=== PATIENT | male | born 1970 | race Asian ===

== ENCOUNTER 2019-09-27 13:27 | Inpatient (IN) | payer SELFPAY ==
[~2019-09-27] VITALS: Ht 170.2 cm; Wt 75.7 kg
[2019-09-27 14:00] VITALS: BP 160/101
--- NOTE | 2019-09-27 14:03 | Emergency Room Report ---
History of Present Illness General Chief Complaint: Stroke Symptoms Source: Patient Present Illness [facility] Disclaimer: Please note that this report is being documented using [employer] technology. This can lead to erroneous entry secondary to incorrect interpretation by the dictating instrument. HPI: 49-year-old male with no reported medical history presents for evaluation of headache, blurred vision, weakness and slurred speech. Symptoms began approximately 2 nights ago. The patient awoke while taking care of his mother and found that his speech was slurred and that he was not enunciating as he usually does. Notes some numbness and tingling on the left side of his face and possible facial droop but he cannot be sure of this. The following day he went to work and noticed that his right hand felt weak and discoordinated. Said he could not write using a pen as he usually would. Symptoms have persisted in this however his speech, facial numbness and possible facial droop had resolved. Also noticing problems with his gait stating that he is not as steady as he usually is. He has not fallen and denies any vertiginous symptoms. There is been no recent injury. Once the symptoms started he started taking 2 tablets of 81 mg aspirin. No history of stroke, head bleed, seizure. He had a febrile URI illness approximately 10 days ago which resolved. No current symptoms from that remain. PMH: Denies PSH: Denies Allergies: Denies Social Hx: Social alcohol use. Denies tobacco or drug use Allergies: Coded Allergies: No Known Allergies (Unverified , 09/27/19) Nursing Documentation-PMH Past Medical History: No Stated History Review of Systems All Other Systems: negative except mentioned in HPI Physical Exam Vital Signs Date Time Temp Pulse Resp B/P (MAP) Pulse Ox O2 Delivery O2 Flow Rate FiO2 09/27/19 13:33 97.7 92 18 155/113 (127) 97 Room Air General: Awake and alert, no acute distress HEENT: NC/AT. EOMI. PERRLA. Visual law are full. No nystagmus. Facial expressions are symmetrical. No facial droop. Cardiovascular: RRR. S1 and S2 normal. No murmur appreciated Resp: Normal work of breathing. No cough, wheezing or crackles appreciated Abdomen: Abdomen is soft, nondistended. Nontender Skin: Intact. No abrasions, laceration or rash over the exposed skin MSK: Normal tone and bulk. Moving all extremities. No obvious deformity. There is no drift in the upper or lower extremities bilaterally. Neuro: Awake and alert. Mentating appropriately. Facial expression symmetrical. No dysarthria, no ataxia on cwyzko-zywm-lydetw or obyg-sq-rkds testing. Sensation to light touch is intact over the upper and lower extremities. The patient has intact speech with good repetition, comprehension. Fund of knowledge is full. No aphasia, no neglect. NIH: 0 Procedures Critical Care Time Critical Care Time Total critical care time: Approximately 45 minutes Due to a high probability of clinically significant, life threatening deterioration, the patient required the highest level of preparedness to intervene emergently and I personally spent this critical care time directly and personally managing the patient. This critical care time included obtaining a history, examining the patient, pulse oximetry, ordering and reviewing studies , ordering treatments, evaluating response to treatment and updating management plan as needed, frequent reassessment and discussion with other providers as well as arranging for ultimate disposition. This critical to care time was performed to assess and manage the high probability of life-threatening deterioration that could result in multiorgan failure. This critical care time is separate from the separately billable procedures and treating other patients. Medical Decision Making Diagnostic Impression: Primary Impression: CVA (cerebral vascular accident) ER Course This a 49-year-old male presenting for evaluation of intermittent headaches, facial numbness, subjective facial droop, changes in strength, coordination and balance over the past 2 to 3 days. Patient is outside acute intervention window for possible stroke though this is top of the differential. Patient is out of the treatment window for thrombolytics or vascular intervention at this time. NIH is 0. Differential also includes but is not limited to metabolic or electrolyte abnormality, vitamin deficiency, intoxication, GBS, TIA, Gambino's palsy, intracranial mass to name a few. He was sent for stat CT of the head per stroke protocol. Labs sent and are pending. Patient also be sent for an MRI. Laboratory Tests Test 09/27/19 14:50 White Blood Count 4.9 K/UL (4.8-10.8) Red Blood Count 5.51 M/UL (4.70-6.10) Hemoglobin 16.8 G/DL (14.2-18.0) Hematocrit 48.4 % (42.0-52.0) Mean Corpuscular Volume 88 FL (80-99) Mean Corpuscular Hemoglobin 30.5 PG (27.0-31.0) Mean Corpuscular Hemoglobin Concent 34.7 G/DL (32.0-36.0) Red Cell Distribution Width 10.2 % (11.6-14.8) L Platelet Count 173 K/UL (150-450) Mean Platelet Volume 7.1 FL (6.5-10.1) Neutrophils (%) (Auto) 57.0 % (45.0-75.0) Lymphocytes (%) (Auto) 33.1 % (20.0-45.0) Monocytes (%) (Auto) 6.5 % (1.0-10.0) Eosinophils (%) (Auto) 2.5 % (0.0-3.0) Basophils (%) (Auto) 1.0 % (0.0-2.0) Prothrombin Time 9.9 SEC (9.30-11.50) Prothrombin Time INR 0.9 (0.9-1.1) PTT 25 SEC (23-33) Sodium Level 137 MMOL/L (136-145) Potassium Level 4.4 MMOL/L (3.5-5.1) Chloride Level 102 MMOL/L (98-107) Carbon Dioxide Level 24 MMOL/L (21-32) Anion Gap 11 mmol/L (5-15) Blood Urea Nitrogen 17 mg/dL (7-18) Creatinine 1.1 MG/DL (0.55-1.30) Estimate Glomerular Filtration Rate > 60 mL/min (>60) Glucose Level 338 MG/DL (74-106) H Calcium Level 8.6 MG/DL (8.5-10.1) Total Bilirubin 0.6 MG/DL (0.2-1.0) Aspartate Amino Transferase (AST) 22 U/L (15-37) Alanine Aminotransferase (ALT) 51 U/L (12-78) Alkaline Phosphatase 77 U/L (46-116) Total Protein 7.3 G/DL (6.4-8.2) Albumin 3.8 G/DL (3.4-5.0) Globulin 3.5 g/dL Albumin/Globulin Ratio 1.1 (1.0-2.7) Triglycerides Level 351 MG/DL (30-150) H Cholesterol Level 233 MG/DL (< 200) H LDL Cholesterol 167 mg/dL (<100) H HDL Cholesterol 43 MG/DL (40-60) Cholesterol/HDL Ratio 5.4 (3.3-4.4) H EKG Diagnostic Results EKG Time: 14:05 Rate: normal Rhythm: NSR ST Segments: no acute changes Other Impression Sinus rhythm, slight right axis deviation, normal intervals, no ST segment changes. Q waves in the precordial leads Rhythm Strip Diag. Results Rhythm Strip Time: 14:05 EP Interpretation: yes Rate: 80s Rhythm: NSR, no PVC's, no ectopy CT/MRI/US Diagnostic Results CT/MRI/US Diagnostic Results : Impression Preliminary Findings Only See Final Report For Complete Findings CT HEAD Without Contrast: 9 mm hypodensity in the right basal ganglia, likely a remote lacunar infarct. No evidence of acute intracranial hemorrhage, mass effect, or midline shift. Mild mucosal thickening in the ethmoid air cells and maxillary sinuses. Radiologist: Olegario Kamara MD Study ready at 14:08 and initial results transmitted at 14:11 Preliminary Findings Only See Final Report For Complete Findings MRI HEAD Without Contrast: 1 x 0.7 cm acute infarct at the ventral left braden image 8 Ventricles are within limits and midline Dilated perivascular space inferior right basal ganglia, incidental Major intracranial flow voids appear within limits Radiologist: Marcell Cruz M.D. Study ready at 17:23 and initial results transmitted at 17:43 Reevaluation Time: 14:29 Last Vital Signs Date Time Temp Pulse Resp B/P (MAP) Pulse Ox O2 Delivery O2 Flow Rate FiO2 09/27/19 13:33 97.7 92 18 155/113 (127) 97 Room Air Status: unchanged Reevaluation Impression CT scan is concerning for a 9 mm hypodensity in the right basal ganglia which radiology interpreting as a possible remote lacunar infarct. Will obtain MRI of the head to further differentiate. Dr. Fernandez of neurology has been made aware the patient is coming to evaluate them. The patient will require admission. 1757: MRI confirms infarct. 1 x 0.7 cm acute infarct in the vertebral left braden. Patient is received aspirin. He has been evaluated neurology and the admitting service. Will be admitted to telemetry for further work-up and treatment. Disposition: ADMITTED INPATIENT Condition: Serious Fan,Bernard MD Sep 27, 2019 14:02
--- NOTE | 2019-09-27 14:05 | NUR ---
ED Nurse Note: Pt brought into ambulance w c/o slurred speech and feeling that R side is weaker than L side since 3 days ago 0430. Pt states he woke up and felt numbness L face and weakness R side. Pt states he couldn't write the same as well. Pt bilat arm strength and leg 5/5. Pt does not have facial droopiness. Pt set up on monitor. Pt has returned from CT. at bedside.
--- NOTE | 2019-09-27 14:12 | Diagnostic Imaging Report ---
Indications: Altered mental status Technique: Spiral acquisitions obtained through the brain. Angled axial and coronal 5 x 5 mm slices were reconstructed. Total dose length product 1457 mGycm. CTDI vol(s) 62 mGy. Dose reduction achieved using automated exposure control Comparison: None. Findings: No acute intracranial hemorrhage or edema. No mass effect or midline shift. Normal rahman-white differentiation. Old lacunar infarct versus prominent perivascular space is seen in the right basal ganglia Visualized orbits are unremarkable. There is bilateral maxillary sinus disease. Mastoids are clear. The calvarium is intact. Impression: Negative for acute intracranial bleed or mass effect Right basal ganglia lacunar infarcts versus prominent perivascular space Sinus disease This agrees with the preliminary interpretation provided overnight by [facility]. The CT scanner at [facility] is accredited by the [employer] and the scans are performed using protocols designed to limit radiation exposure to as low as reasonably achievable to attain images of sufficient resolution adequate for diagnostic evaluation.
[2019-09-27 15:06] LABS: EOSINOPHILS % (AUTO) 2.5 % (0.0-3.0); HEMATOCRIT 48.4 % (42.0-52.0); HEMOGLOBIN 16.8 G/DL (14.2-18.0); LYMPHOCYTES % (AUTO) 33.1 % (20.0-45.0); MEAN CORPUSCULAR VOLUME 88 FL (80-99); MONOCYTES % (AUTO) 6.5 % (1.0-10.0); PLATELET COUNT 173 K/UL (150-450); RED BLOOD COUNT 5.51 M/UL (4.70-6.10); RED CELL DISTRIBUTION WIDTH 10.2 % (11.6-14.8); WHITE BLOOD COUNT 4.9 K/UL (4.8-10.8)
[2019-09-27 15:20] LABS: ANION GAP 11 mmol/L (5-15); BLOOD UREA NITROGEN 17 mg/dL (7-18); CALCIUM 8.6 MG/DL (8.5-10.1); CARBON DIOXIDE 24 MMOL/L (21-32); CHLORIDE 102 MMOL/L (98-107); CREATININE 1.1 MG/DL (0.55-1.30); POTASSIUM 4.4 MMOL/L (3.5-5.1); SODIUM 137 MMOL/L (136-145)
[2019-09-27 15:23] LABS: ALANINE AMINOTRANSFERASE 51 U/L (12-78); ALBUMIN 3.8 G/DL (3.4-5.0); ALBUMIN/GLOBULIN RATIO 1.1 (1.0-2.7); ALKALINE PHOSPHATASE 77 U/L (46-116); ASPARTATE AMINO TRANSFERASE 22 U/L (15-37); BILIRUBIN,TOTAL 0.6 MG/DL (0.2-1.0); CHOLESTEROL 233 MG/DL (< 200); HDL CHOLESTEROL 43 MG/DL (40-60); INR 0.9 (0.9-1.1); TRIGLYCERIDES 351 MG/DL (30-150)
--- NOTE | 2019-09-27 15:40 | NUR ---
ED Nurse Note: Pt taken to CT.
[2019-09-27] MEDS ORDERED: Aspirin Baby 81mg ORAL ONE (15:45)
[2019-09-27] MEDS ORDERED: Gadavist 7.5mMol/7.5ml vial IV PRN (16:30)
[2019-09-27 16:41] VITALS: BP 156/100
--- NOTE | 2019-09-27 17:44 | Diagnostic Imaging Report ---
Indication: Headache, blurred vision, weakness, slurred speech Technique: sagittal T1 fast spin echo, axial T1 FLAIR, axial T2 FLAIR, axial T2 FS PROPELLER, axial T2* GRE, axial diffusion weighted images. ADC and exponential ADC maps generated Comparison: Reference made to CT scan performed earlier the same day Findings: There is a small focus of restricted diffusion in the braden just to the left of midline. This demonstrates high T2 signal, is visible retrospectively as a focus of slightly decreased attenuation on recent CT scan. There is no associated hemorrhage. No acute hemorrhage or edema. No mass effect nor midline shift. Normal size ventricles and extra axial CSF spaces old lacunar infarcts versus prominent perivascular space seen in the right posterior inferior basal ganglia region.. Visualized orbits and sinuses are unremarkable. The vascular flow voids are preserved. There is bilateral maxillary sinus disease Impression: Positive for acute left pontine lacunar infarct Old right basal ganglia lacunar infarct versus prominent perivascular space, favor the latter Sinus disease Negative for acute intracranial bleed or mass effect This agrees with the preliminary interpretation provided overnight by [facility].
--- NOTE | 2019-09-27 18:25 | Diagnostic Imaging Report ---
Indications: Headache, blurred vision, weakness, and slurred speech Technique: 3D [id number]-[id number] images obtained through the [place] [facility] [place]. MIP reconstructions were generated in multiple rotational projections Comparison: None. Reference made to brain CT and MRI of the same day Findings: Codominant nonstenotic bilateral distal vertebral arteries. Patent and nonstenotic basilar artery. Both superior cerebellar arteries are patent and visualized. Patent nonstenotic bilateral P1 segments and proximal posterior cerebral arteries. Neither posterior communicating artery is visualized. Patent nonstenotic distal internal carotid arteries bilaterally. Patent nonstenotic bilateral M1 segments and proximal branches. Patent nonstenotic bilateral A1 segments. There is a patent anterior communicating artery demonstrated. The A2 segments and proximal anterior screw artery branches are patent without evidence of significant stenosis. There is no evidence of aneurysm or vascular malformation demonstrated. Impression: Negative for evidence of significant proximal intracranial cerebrovascular insufficiency
--- NOTE | 2019-09-27 18:31 | Diagnostic Imaging Report ---
Indication: Headache, blurred vision, weakness, and slurred speech, acute infarct on recent MRI Technique: 2-D [id number] images obtained through the extracranial through circulation. Subsequent, IV administration of gadolinium contrast. Coronal sequential TRICKS sequences then obtained of the intracranial vessels. MIP reconstructions were generated. Comparison: none Findings: Unremarkable aortic arch anatomy. Patent nonstenotic right brachiocephalic, common, and internal carotid arteries. Patent nonstenotic right proximal subclavian and vertebral artery. Vertebral arteries are codominant. Patent nonstenotic left proximal subclavian. There is suggestion of a focal stenosis of the proximal left vertebral artery on the postcontrast images. This is not corroborated on the fxsp-nh-tbhxhq images, could be artifactual. Patent nonstenotic left common carotid and internal carotid artery. Impression: Possible focal significant stenosis of the left proximal vertebral artery, versus artifact No other evidence of significant extracranial cerebrovascular insufficiency This agrees with the preliminary interpretation provided overnight by [facility].
[2019-09-27 19:05] VITALS: BP 145/89
--- NOTE | 2019-09-27 19:05 | NUR ---
ED Nurse Note: Recieved report from Eda CASTREJON. Pt alert and oriented, verbally repsonsive. No SOB.
[2019-09-27] MEDS ORDERED: NKM (19:31)
--- NOTE | 2019-09-27 20:36 | History and Physical ---
History of Present Illness General Date patient seen: Sep 27, 2019 Reason for Hospitalization: Stroke Symptoms Present Illness HPI Patient is a 49-year-old right-handed male with no known medical problems presents with 2 days of headache, blurred vision, slurred speech, difficulty writing, weakness and left-sided facial numbness. Patient woke up feeling all of this and did not think anything much of it. The next day he went to work and noticed that his right hand felt discoordinated. Later on his facial numbness resolved however he still feels that his speech is not at its baseline and his writing is still weak. He also noticed his gait was not daily. Patient has never felt like this before. No recent trauma. He took aspirin at home. He denies any fevers, chills, shortness of breath, chest pain, palpitations, dizziness, lower extremity edema. Patient has never seen a doctor in the past. Past medical history: None Past surgical history: None Social history: Occasional alcohol use, denies tobacco or illicit drug use Family history: Grandfather at an early age from a stroke Allergies: Coded Allergies: No Known Allergies (Unverified , 09/27/19) Medication History Scheduled Aspirin* (Aspirin*), 81 MG ORAL DAILY Atorvastatin (Lipitor), 80 MG ORAL BEDTIME Clopidogrel Bisulfate* (Plavix*), 75 MG ORAL DAILY Lisinopril* (Lisinopril*), 10 MG ORAL DAILY Metformin Hcl* (Glucophage*), 850 MG ORAL TIAC No Known Medications* (NKM - No Known Medications*), 0 ., (Reported) Patient History Healthcare decision maker N Resuscitation status Advanced Directive on File Review of Systems Constitutional: Reports: weakness Eye: Reports: blurred vision ENT: Denies: no symptoms, see HPI, ear pain, ear discharge, nose pain, nose congestion, throat pain, throat swelling, mouth pain, hearing loss, nasal discharge, other Respiratory: Denies: no symptoms, see HPI, cough, orthopnea, shortness of breath, stridor, wheezing, CRAVEN, sputum, other Cardiovascular: Denies: no symptoms, see HPI, chest pain, edema, palpitations, syncope, PND, other Gastrointestinal: Denies: no symptoms, see HPI, abdominal pain, constipation, diarrhea, nausea, vomiting, melena, hematemesis, other Genitourinary: Denies: no symptoms, see HPI, discharge, dysuria, frequency, hematuria, pain, retention, incontinence, urgency, vag bleed/dc, other Musculoskeletal: Denies: no symptoms, see HPI, back pain, gout, joint pain, joint swelling, muscle pain, muscle stiffness, other Skin: Denies: no symptoms, see HPI, rash, change in color, change in hair/nails , dryness, lesions, other Psychiatric: Denies: no symptoms, see HPI, prior hx, anxiety, depressed feelings, emotional problems, SI, HI, hallucinations, other Neurological: Reports: see HPI, headache, numbness, tingling, focal weakness Endocrine: Denies: no symptoms, see HPI, excessive sweating, flushing, intolerance to temperature, increased thirst, increased urine, unexplained weight loss, other Hematologic/Lymphatic: Denies: no symptoms, see HPI, anemia, blood clots, easy bleeding, easy bruising, swollen glands, diathesis, other Physical Exam Physical Exam Narrative General: Awake and alert, no acute distress HEENT: NC/AT. EOMI. PERRLA. Visual law are full. No nystagmus. No facial droop. Cardiovascular: RRR. S1 S2. No murmur appreciated Resp: CTA bl. No wheezing or crackles Abdomen: Abdomen is soft, nt, nd MSK: Normal tone and bulk. Moving all extremities. Neuro: Awake and alert. Mentating appropriately. Facial expression symmetrical. No dysarthria, no ataxia on afbpjo-vkxj-qleolt or akky-jd-xuko testing. Sensation to light touch is intact over the upper and lower extremities. intact speech with good repetition, comprehension. Fund of knowledge is full. No aphasia, no neglect. no drift skin: no ulcer, or rashes Last 24 Hour Vital Signs Date Time Temp Pulse Resp B/P (MAP) Pulse Ox O2 Delivery O2 Flow Rate FiO2 09/27/19 16:41 98.7 78 19 156/100 99 Room Air 09/27/19 14:00 98.7 65 18 160/101 98 Room Air 09/27/19 13:33 97.7 92 18 155/113 (127) 97 Room Air Laboratory Tests Test 09/27/19 14:50 White Blood Count 4.9 K/UL (4.8-10.8) Red Blood Count 5.51 M/UL (4.70-6.10) Hemoglobin 16.8 G/DL (14.2-18.0) Hematocrit 48.4 % (42.0-52.0) Mean Corpuscular Volume 88 FL (80-99) Mean Corpuscular Hemoglobin 30.5 PG (27.0-31.0) Mean Corpuscular Hemoglobin Concent 34.7 G/DL (32.0-36.0) Red Cell Distribution Width 10.2 % (11.6-14.8) L Platelet Count 173 K/UL (150-450) Mean Platelet Volume 7.1 FL (6.5-10.1) Neutrophils (%) (Auto) 57.0 % (45.0-75.0) Lymphocytes (%) (Auto) 33.1 % (20.0-45.0) Monocytes (%) (Auto) 6.5 % (1.0-10.0) Eosinophils (%) (Auto) 2.5 % (0.0-3.0) Basophils (%) (Auto) 1.0 % (0.0-2.0) Prothrombin Time 9.9 SEC (9.30-11.50) Prothromb Time International Ratio 0.9 (0.9-1.1) Activated Partial Thromboplast Time 25 SEC (23-33) Sodium Level 137 MMOL/L (136-145) Potassium Level 4.4 MMOL/L (3.5-5.1) Chloride Level 102 MMOL/L (98-107) Carbon Dioxide Level 24 MMOL/L (21-32) Anion Gap 11 mmol/L (5-15) Blood Urea Nitrogen 17 mg/dL (7-18) Creatinine 1.1 MG/DL (0.55-1.30) Estimat Glomerular Filtration Rate > 60 mL/min (>60) Glucose Level 338 MG/DL (74-106) H Calcium Level 8.6 MG/DL (8.5-10.1) Total Bilirubin 0.6 MG/DL (0.2-1.0) Aspartate Amino Transf (AST/SGOT) 22 U/L (15-37) Alanine Aminotransferase (ALT/SGPT) 51 U/L (12-78) Alkaline Phosphatase 77 U/L (46-116) Total Protein 7.3 G/DL (6.4-8.2) Albumin 3.8 G/DL (3.4-5.0) Globulin 3.5 g/dL Albumin/Globulin Ratio 1.1 (1.0-2.7) Triglycerides Level 351 MG/DL (30-150) H Cholesterol Level 233 MG/DL (< 200) H LDL Cholesterol 167 mg/dL (<100) H HDL Cholesterol 43 MG/DL (40-60) Cholesterol/HDL Ratio 5.4 (3.3-4.4) H Height (Feet): 5 Height (Inches): 7.00 Weight (Pounds): 170 Medications Current Medications Medications (Trade) Dose Ordered Sig/Marcial Route PRN Reason Start Time Stop Time Status Last Admin Dose Admin Gadobutrol (Gadavist) 7.5 mmol NOW PRN IV Radiology Procedure 09/27/19 16:30 09/30/19 16:26 Objective Narrative MRI brain: Impression: Positive for acute left pontine lacunar infarct Old right basal ganglia lacunar infarct versus prominent perivascular space, favor the latter Sinus disease Negative for acute intracranial bleed or mass effect MRA head and neck: Impression: Possible focal significant stenosis of the left proximal vertebral artery, versus artifact No other evidence of significant extracranial cerebrovascular insufficiency EKG personally interpreted by me: Normal sinus rhythm at 82 bpm, right axis deviation, old septal infarct Assessment/Plan Problem List: (1) Acute CVA (cerebrovascular accident) ICD Codes: I63.9 - Cerebral infarction, unspecified SNOMED: 732303847, [id number] (2) Newly diagnosed diabetes ICD Codes: E11.9 - Type 2 diabetes mellitus without complications SNOMED: 03059009, 970870936 (3) Hypertension ICD Codes: I10 - Essential (primary) hypertension SNOMED: 98029711 (4) Hyperlipidemia ICD Codes: E78.5 - Hyperlipidemia, unspecified SNOMED: 37421739 Status: stable Assessment/Plan: 49-year-old male with acute left pontine infarct, hyperlipidemia, hypertension, diabetes. All newly diagnosed. 1. Acute left pontine CVA, left vertebral artery stenosis 2. Uncontrolled hypertension 3. Uncontrolled diabetes 4. Uncontrolled hyperlipidemia Plan: Admit to boring machine operator for any arrhythmias, 2D echocardiogram MRI brain, MRA head and neck reviewed Neurology consult Dr. Fernandez Aspirin, Plavix, atorvastatin 80 mg Permissive hypertension Check hemoglobin A1c Frequent neurochecks I spent 70 minutes on this encounter. Greater than 50% spent in counseling and care coordination. Plan of care discussed with patient, RN, ED physician. Time of note may not reflect time of encounter. Lawson Chung M.D. Sep 27, 2019 20:36
[2019-09-27] MEDS ORDERED: Albuterol/Ipratropium 3ml neb HHN PRN (20:45)
[2019-09-27] MEDS ORDERED: Miralax 17gm pkt ORAL PRN (20:45)
--- NOTE | 2019-09-27 20:50 | NUR ---
ED Nurse Note: Report given to Kathy CASTREJON.
[2019-09-27 21:00] VITALS: BP 154/90
[2019-09-27] MEDS ORDERED: Labetalol 5mg/ml 20ml vial IV PRN (21:00)
[2019-09-27] MEDS ORDERED: Atorvastatin 80mg tab ORAL SCH (21:00)
--- NOTE | 2019-09-27 21:00 | NUR ---
TRANSFER TO FLOOR: Patient transferred to Telemetry [facility]. Report given to Kathy. Pt alert and oriented, verbally responsive. No SOB. Afebrile. IV line on left AC 20g patent and intact. Med recon done. All belongings given to the patient.
--- NOTE | 2019-09-27 21:15 | NUR ---
NURSE NOTES: RECEIVED PATIENT FROM ER. PATIENT ALERT AND ORIENTED X4, DENIES PAIN OR DIZZINESS AT THIS TIME. BELONGINGS CHECKED WITH ER NURSE. PATIENT DECLINED TO SEND VALUABLES TO HOSPITAL'S SAF[facility]. PLACED PATIENT ON TELE, SR ON A MONITOR. FALL PRECAUTIONS IN PLACE: CALL LIGHT, BEDSIDE TABLE AND URINAL WITHIN REACH, BED IN LOW POSITION. PLAN OF CARE REVIEWED.
[2019-09-27 21:30] VITALS: BP 162/110
[2019-09-27] MEDS: NovoLOG Insulin Flexpen SUBQ SCH (22:19)
--- NOTE | 2019-09-27 23:02 | NUR ---
NURSE NOTES: PATIENT REQUESTING TO SEE MD TO DISCUSS MRI AND CT RESULTS. LEFT MESSAGE FOR DR. JARVIS. CALLED BACK AND SAID SHE TALKED TO PATIENT IN ER AND WILL SEE HIM IN AM
[2019-09-28] VITALS: BP 156/101
[2019-09-28 04:00] VITALS: BP 127/74
[2019-09-28] MEDS: NovoLOG Insulin Flexpen SUBQ SCH ×2 (06:06→12:05)
--- NOTE | 2019-09-28 07:23 | NUR ---
HAND-OFF: Report given to Miguel CHAMORRO RN. PATIENT RESTING IN BED, NO CHANGE IN MENTAL STATUS NOTED.
--- NOTE | 2019-09-28 07:30 | NUR ---
NURSE NOTES: Received pt from SHANICE CASTREJON. Pt is awake and alert. pt is in RA, no SOB or acute respiratory distress noted. pt has intact iv access LAC 20G SL. Pt is eating breakfast independently. no complain of pain at this moment. all needs attended, bed is locked and is in the lowest position. call light within easy reach. will continue to monitor.
--- NOTE | 2019-09-28 07:49 | NUR ---
HAND-OFF: Report given to CASH Suggs. Addendum: 09/28/19 at 0750 by Es Bell RN incorrect login/user
[2019-09-28 08:00] VITALS: BP 149/100
[2019-09-28 08:04] LABS: ALANINE AMINOTRANSFERASE 44 U/L (12-78); ALBUMIN 3.8 G/DL (3.4-5.0); ALBUMIN/GLOBULIN RATIO 1.1 (1.0-2.7); ALKALINE PHOSPHATASE 70 U/L (46-116); ANION GAP 7 mmol/L (5-15); ASPARTATE AMINO TRANSFERASE 25 U/L (15-37); BILIRUBIN,TOTAL 0.8 MG/DL (0.2-1.0); BLOOD UREA NITROGEN 11 mg/dL (7-18); CALCIUM 8.6 MG/DL (8.5-10.1); CARBON DIOXIDE 27 MMOL/L (21-32); CHLORIDE 103 MMOL/L (98-107); POTASSIUM 3.6 MMOL/L (3.5-5.1); SODIUM 137 MMOL/L (136-145)
--- NOTE | 2019-09-28 08:47 | NUR ---
NURSE NOTES: pt is complaining to see Dr BILL ADKINS notified, waiting to see pt. will continue to monitor.
[2019-09-28] MEDS ORDERED: Aspirin Baby 81mg ORAL SCH (09:00)
[2019-09-28 12:00] VITALS: BP 145/91
[2019-09-28] MEDS ORDERED: PLAVIX75 MG ORAL (14:42)
[2019-09-28] MEDS ORDERED: LIPITOR80 MG ORAL (14:42)
[2019-09-28] MEDS ORDERED: ASPIRIN81 MG ORAL (14:42)
[2019-09-28] MEDS ORDERED: GLUCOPHAGE850 MG ORAL (14:42)
[2019-09-28] MEDS ORDERED: LISINOPRIL10 MG ORAL (14:42)
--- NOTE | 2019-09-28 14:42 | Discharge Summary ---
Discharge Summary Hospital Course Date of Admission Sep 27, 2019 at 15:15 Date of Discharge September 28, 2019 Admitting Diagnosis Acute left pontine infarct NORM Hunt is a 49 year old male who was admitted on Sep 27, 2019 at 15:15 for Stroke Consultations Neurology: Procedures MRI brain, MRA head and neck, CT head, 2D echocardiogram Hospital Course 49-year-old male with acute left pontine infarct, hyperlipidemia, hypertension, diabetes. All newly diagnosed. 1. Acute left pontine CVA, left vertebral artery stenosis 2. Uncontrolled hypertension 3. Uncontrolled diabetes 4. Uncontrolled hyperlipidemia Plan: bone glue maker for any arrhythmias, 2D echocardiogram MRI brain, MRA head and neck reviewed Neurology consult Dr. Fernandez Aspirin, Plavix, atorvastatin 80 mg Permissive hypertension, started on lisinopril 10 mg daily Check hemoglobin A1c--> 9.6, started on metformin 850 mg twice a day Frequent neurochecks I spent 40 minutes on this encounter. Greater than 50% spent in counseling and care coordination. Plan of care discussed with patient, RN, ED physician. Time of note may not reflect time of encounter. Discharge Medications New Medications: Lisinopril* (Lisinopril*) 10 Mg Tablet 10 MG ORAL DAILY for 10 Days, #10 TAB Aspirin* (Aspirin*) 81 Mg Tab.chew 81 MG ORAL DAILY for 10 Days, #10 TAB Atorvastatin (Lipitor) 80 Mg Tablet 80 MG ORAL BEDTIME for 10 Days, #10 TAB Clopidogrel Bisulfate* (Plavix*) 75 Mg Tablet 75 MG ORAL DAILY for 10 Days, #10 TAB Metformin Hcl* (Glucophage*) 850 Mg Tablet 850 MG ORAL TIAC for 10 Days, #20 TAB Continued Medications: No Known Medications* (NKM - No Known Medications*) . 0 ., 0 Refills (This prescription has been renewed) Discharge Condition Upon Discharge: stable Discharge Disposition Patient was discharged to home with self-care Discharge Diagnoses: (1) Acute CVA (cerebrovascular accident) (2) Newly diagnosed diabetes (3) Hypertension (4) Hyperlipidemia Lawson Chung M.D. Sep 28, 2019 14:42
--- NOTE | 2019-09-28 14:46 | Discharge Summary ---
Discharge Summary Hospital Course Date of Admission Sep 27, 2019 at 15:15 Date of Discharge Admitting Diagnosis STROKE HPI Robert Hunt is a 49 year old male who was admitted on Sep 27, 2019 at 15:15 for Stroke Discharge Discharge Disposition Patient was discharged to Lawson Chung M.D. Sep 28, 2019 14:46
[2019-09-28 16:00] VITALS: BP 154/102
--- NOTE | 2019-09-28 16:02 | NUR ---
CASE MANAGEMENT:REVIEW 49 YR OLD MALE PRESENTED TO ER CC: WOKE WITH SLURRED SPEECH, LOSS OF BALANCE, DIFFICULTY WRITING, HEADACHE AND BLURRED VISION SI: CVA 97.7 92 18 155/113 97% ON RA GLUCOSE+243 IS: ASA PO MRI BRAIN CT HEAD NEURO CHECKS : TELEMETRY STATUS
--- NOTE | 2019-09-28 16:14 | NUR ---
NURSE NOTES: Pt has discharge order, all D/C assessments and instructions done and pt verbally confirmed to understand all. pt is stable, pt is alert and orient x4. V/S stable. Dr JARVIS sent prescription to [facility] and pt asked to take them from pharmacy by him self. pt knows to see his primary MD as soon as possible. pt knows to F/U for high blood sugar out patient. pt knows about all his meds. all belongings checked with RN and are with pt and belongings list signed by pt. pt refused to have wheelchair, iv access D/C, Pt left hospital with accompany of his sister.
--- NOTE | 2019-09-29 05:15 | Consultation ---
DATE OF CONSULTATION: 09/28/2019 NEUROLOGIC CONSULTATION CONSULTING PHYSICIAN: Luis Fernandez M.D. CHIEF COMPLAINT: This is the first [facility] admission for this 41-year-old right-handed [place] man with history of hypertension for 10 years, but on no medication and probably newly discovered hyperlipidemia or hyperlipidemia for unknown amount of time. He was admitted with a chief complaint of slurred speech, mild right-sided weakness beginning on Saturday morning. The patient awoke and noted a slight headache and some slurred speech. There was no dysphagia, visual loss, diplopia. He had some numbness on the left side of his head. The patient, however, went to work and over time, he got a little bit better, but the next day he was not getting any better. Family decided to come to the hospital yesterday. The patient denies any chest pain, palpitations, fever, or chills. He is a nonsmoker. There is no history of heart disease or diabetes. There is no history of cancer or thyroid disease. He denies any history of migraine headaches although he had a mild headache on Saturday. The patient denies any paresthesias or dysesthesias in any parts of his body. There are no tremors or shakes. He denied any gait disorder. There is no loss of bowel or bladder function. He denies any head injury or back injury. He has not been to the dentist. There is no neck pain. He is not anemic. There is no history of cancer. The patient came to this hospital. He had a noncontrast CT scan of the brain, which revealed a "right basal ganglia lacunar infarct versus prominent perivascular space." The patient had a brain MRI yesterday revealing a 1 x 0.7 cm acute infarct of the ventral left braden. Yesterday, I ordered an MRA of his brain and neck. The MRA of the brain was apparently negative. The MRA of the neck revealed possible focal narrowing in the left vertebral artery approximately 1-1/2 cm in the origin of the right and left vertebral artery, which appears intact. The patient on admission had blood pressures as high as over 160 systolic and over 100 diastolic. His CBC was basically normal. Chemistries were normal except for the following. He had a blood sugar of 338 on admission. Today, it is 243. His triglycerides were pretty elevated as well as his cholesterol is elevated. His LDL cholesterol was 167, HDL was 43. TSH was normal. The electrolytes are normal as well as the liver function tests. The patient did not have a chest x-ray. The patient had an EKG, which was basically normal except for slight right axis deviation. I started the patient yesterday on Plavix 75 mg and aspirin 325 mg. Unfortunately, his . There is no history of facial weakness, although he did have some facial numbness. The patient's grandfather had a stroke. Otherwise, no family history of neurologic disease. PAST MEDICAL HISTORY/PAST MEDICAL ILLNESSES: 1. Hypertension. See above. 2. Hyperlipidemia. See above. 3. 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 ALLERGIES: No known allergies. HABITS: He denies any illegal drug use. Drinks socially. Does not drink daily. No history of alcohol abuse. MEDICATIONS: He is on no medications on admission. SOCIAL HISTORY: He is a assistant food service manager. He is unmarried and has no children. FAMILY HISTORY: His father of complications of diabetes. His mother and sisters are in good health. REVIEW OF SYSTEMS: Appetite has been decreased, reason unknown. Weight is stable about 170 pounds at 5 feet 7 inches. PHYSICAL EXAMINATION: GENERAL: He is a well-developed, well-nourished man, lying in bed, in no acute distress. VITAL SIGNS: Blood pressure is 127/74, pulse is 69 and regular, respirations 18, temperature is 97.7 degrees. HEENT: Reveals arcus senilis, otherwise the head exam is normal. NECK: There is no posterior cervical tenderness or muscle spasm or limitation of motion. Carotids are +2 without any bruits. LUNGS: Clear to auscultation. CARDIOVASCULAR: PMI is in the fifth intercostal space in midclavicular line. JVP flat. The patient had normal S1. S2 physiologically split. There is no S3, S4, murmurs, or rubs. ABDOMEN: The abdomen was slightly open. Bowel sounds intact. No tenderness, masses, or organomegaly. BACK: There is no tenderness to percussion or muscle spasm. EXTREMITIES: Peripheral pulses in upper extremities are +2, in the lower extremities are +1. NEUROLOGIC EXAMINATION: MENTAL STATUS: His judgment was not tested. Affect is appropriate. Memory, past memory is intact to date of , mother's maiden name. Immediate recall is 3/3 objects. Recent recall is 3/3 objects at 5 minutes. Intellect, he could not abstract, could not understand what I was saying. Orientation, time he knew the date was 09/28/2019. He knew he was at [facility] second floor. Person, he is oriented to person. Language function, spoken speech is basically fluent Egyptian without paraphasias. Repetition was intact. Comprehension was basically normal. There is no right left confusion or finger agnosia. He could spell world backwards and forwards without difficulty. CRANIAL NERVE EXAMINATION: CRANIAL NERVE II: Visual law are intact to confrontation. Fundi were not visualized. CRANIAL NERVES III, IV, AND : Extraocular motility was full. Pupils are equal, round, reactive to light about 5 mm. CRANIAL NERVE V: Facial and corneal sensation was intact. Pterygoid strength is 5/5. CRANIAL NERVE VII: Facial strength was 5/5 bilaterally. CRANIAL NERVE VIII: Auditory acuity is intact bilaterally to whisper. CRANIAL NERVES IX AND X: Gag is slightly decreased bilaterally. CRANIAL NERVE XI: Sternocleidomastoid strength was 5/5. CRANIAL NERVE XII: Tongue protrudes in the midline without fasciculations or atrophy. MUSCLE EXAMINATION: Muscle bulk and tone are normal. Strength is 5/5 proximally and distally with minimal right pronator drift. REFLEXES: +1 in the upper extremities, +1 at the knees, 0 at the ankles with downgoing toes and testing for Babinski response. COORDINATION: [id number] reveals a minimal important tremor on the right. Rapid alternating movements are intact. [id number] testing was normal. GAIT AND STATION: The patient has a normal based. Heel-toe tandem walk is normal. Romberg is negative. SENSORY EXAMINATION: Pinprick, proprioception, and fine touch were intact. 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 The patient have to be treated for all of these things. He needs to be on Plavix 75 mg and aspirin 325 mg a day. After 3 months, the Plavix should be discontinued. He does not appear to be a candidate for physical or occupational therapy at this time and can probably be discharged after his other medical issues are improved. PLAN: 1. I will speak to you about this case number. 2. Continue aspirin 325 mg and Plavix 75 mg. Plavix for 3 months and then discontinue and continue aspirin. 3. Treat his hyperlipidemia, hypertension, and get his diabetes under control. Thank you for this interesting case. Luis Fernandez MD DR: FINESSE JOB#: [id number] CC:
--- NOTE | 2019-09-29 09:00 | Progress Note ---
DATE: 09/27/2019 SUBJECTIVE: The patient is a 49-year-old Portuguese [place]ian man, who has a two to three day history of stroke. He was brought to this hospital scan shows left-sided mid pontine infarction involving the mid pontine penetrator and basilar artery. I ordered an MRA of his brain and MRA with contrast of his neck arteries. Luis Fernandez MD DR: Zackery JOB#: [id number] CC:
== END 2019-09-28 16:15 | disposition home or self-care (01) | DRG 66 ==
LOC: EMR 15:10 → 2E 15:15 → EDBEDREQ 17:46
DX: I63.212 Cerebral infarction due to unspecified occlusion or stenosis of left vertebral artery (principal); I10 Essential (primary) hypertension; E11.65 Type 2 diabetes mellitus with hyperglycemia; E78.5 Hyperlipidemia, unspecified
CPT/HCPCS: 36415; 70450; 70544; 70548; 70551; 80053; 80061; 82962; 83036; 83735; 84443; 85025; 85610; 85730; 93005; 93306; 99291; A9585; J1815